=== PATIENT | male | born 1940 ===

== ENCOUNTER → 2019-07-20 | Day surgery (SDC) | payer OTHER ==
[~2019-07-20] MED LIST: COZAAR50 MG PO; HORIZANT300 MG PO; ISOSORBIDE DINI30 MG PO; LIPITOR40 MG PO; PLAVIX75 MG PO; TRAZODONE HCL150 MG PO
== END | disposition home or self-care (01) ==
LOC: ADM 07-07 08:15 → CIR.AMB 07-13 08:15
DX: M19.031 Primary osteoarthritis, right wrist (principal)